=== PATIENT | female | born 1950 | race Caucasian/White ===

== ENCOUNTER → 2016-08-01 | Outpatient (CLI) | payer BC ==
--- NOTE | 2016-08-01 08:46 | XR ---
EXAMINATION TYPE: XR Hip Complete RT DATE OF EXAM: 08/01/2016 8:34 AM CLINICAL HISTORY: Right hip pain TECHNIQUE: AP and frogleg views of the right hip are obtained. COMPARISON: None. FINDINGS: There is no acute fracture/dislocation evident in the right hip. The joint space in the r ight hip appears within normal limits. Right-sided pelvic phlebolith is present. IMPRESSION: No significant finding is seen to account for patient's symptoms of pain.
== END | disposition home or self-care (01) ==
LOC: RADXRMAIN 08:14
PROVIDERS: ATTEND Family Medicine
DX: M25.551 Pain in right hip (principal)
CPT/HCPCS: 73502

== ENCOUNTER → 2016-10-22 | Outpatient (CLI) | payer BC ==
--- NOTE | 2016-10-22 09:33 | WWHP ---
DATE OF SERVICE: 10/22/2016 CHIEF COMPLAINT: The patient is here for her routine gynecologic exam and mammogram. HPI: This is a 66-year-old G4, P4 with an LMP of 1993, who is status post GAIL/BSO for benign reasons. The patient is without gynecologic complaints. PAST MEDICAL HISTORY: COPD, seasonal allergies, chronic back problems including a herniated disc, elevated cholesterol, borderline hypertension, osteoporosis, status post 10 years of Fosamax use and depression. MEDICATIONS: 1. Citalopram 2 mg at bedtime. 2. Albuterol inhaler p.r.n. 3. Diazepam 2 mg p.r.n. 4. Soma p.r.n. for back pain. 5. Hydrocodone p.r.n. for back pain. 6. Calcium and vitamin D supplements daily. ALLERGIES: SULFA which caused hives and CLINDAMYCIN which caused nausea, vomiting, and diarrhea. 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 SOCIAL HISTORY: She quit smoking in 2013, but does use e-cigarette about 3 times per day. She has about 3 alcoholic drinks per year and denies drug use. 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 REVIEW OF SYSTEMS: She has lost about 38 pounds over the last year and she believes she has been more active and has been eating less. She denies respiratory, cardiac, or GI problems. She states she has been regular with her bowel movements. PHYSICAL EXAM: Blood pressure 133/68. Height 5 feet 2 inches. Weight 145 pounds. Temperature 98.1, pulse 53. This is a well-developed, well-nourished white female who is alert and oriented x3, in no acute distress. HEENT is within normal limits. NECK: Supple without mass or thyromegaly. CHEST AND LUNGS: There is mild increased expiratory phase consistent with her COPD, but there are no rales, rhonchi or wheezes. HEART: Regular rate and rhythm. Breasts are without mass or discharge and are consistent with previous breast reduction surgery. Axillary exam is negative for adenopathy. BACK: Negative for CVA tenderness. ABDOMEN: Soft, nontender, without palpable masses. Abdomen is nondistended. PELVIC EXAM: External genitalia reveals mild to moderate atrophy without lesions. Vagina reveals mild to moderate atrophy without lesions. The vagina is slightly short and measures approximately 10 cm which is stable from her exam last year. Bimanual exam reveals a mass near the apex of the vagina measuring approximately 5 x 4 cm and has the consistency of stool. There are no other pelvic masses and there is no tenderness noted. Rectovaginal exam confirms mass, but stool is not felt in the rectum so I cannot be sure that the palpable mass is stool by exam. There are no rectal masses and rectal exam is nontender and this is negative for occult blood. EXTREMITIES: Nontender. IMPRESSION: 1. A 66-year-old menopausal female, status post total abdominal hysterectomy/bilateral salpingo-oophorectomy for benign reasons. 2. Pelvic mass near the apex of the vagina. Differential diagnosis will include colonic stool as well as pelvis neoplasm. PLAN: 1. Pap smears have been discontinued. 2. Self breast examination was discussed. 3. Mammogram will be done today. 4. I have given her an order form for a pelvic ultrasound and stressed the importance of having this done. I have also recommended that she try to evacuate her rectum and colon as well as she can prior to the ultrasound. I have suggested that she can use something like Senokot to remove stool if possible. 5. She will also return in one year.
--- NOTE | 2016-10-23 10:27 | MM ---
Reason for exam: screening (asymptomatic). Last mammogram was performed 1 year and 3 months ago. History: Patient is postmenopausal. Family history of breast cancer in cousin at age 35. Reductions of both breasts, 1993. Physical Findings: A clinical breast exam by your physician is recommended on an annual basis and results should be correlated with mammographic findings. MG Screening Mammo w CAD Bilateral CC and MLO view(s) were taken. Prior study comparison: July 18, 2015, bilateral MG screening mammo w CAD. December 08, 2012, bilateral digital screening mammo w/CAD. There are scattered fibroglandular densities. There is no discrete abnormality. No significant changes when compared with prior studies. ASSESSMENT: Negative, BI-RAD 1 RECOMMENDATION: Routine screening mammogram of both breasts in 1 year.
== END | disposition home or self-care (01) ==
LOC: WWCWWP 07:42
PROVIDERS: ATTEND Obstetrics & Gynecology
DX: Z12.31 Encounter for screening mammogram for malignant neoplasm of breast (principal)

== ENCOUNTER → 2016-10-29 | Outpatient (CLI) | payer BC ==
--- NOTE | 2016-10-29 14:43 | CTL ---
EXAMINATION TYPE: CT Low Dose Lung DATE OF EXAM ORDERED: 10/29/2016 2:33 PM COMPARISON: None HISTORY: . Low Dose CT Lung Screening CT DLP: [address] CTDI: 2.56 mGy IV CONTRAST USED: None. SCREENING VISIT: First visit COMPARISON: None. TECHNIQUE: Low dose computed tomography scan was performed through the chest at 1 millimeter thick se ctions and reconstructed images in the coronal plane at [address] DIAGNOSTIC QUALITY: Satisfactory FINDINGS: LUNG NODULES: Not presentLeft lung: no nodules identified.Right lung: no nodules identified. LUNGS: COPD: Severity: Mild Fibrosis: Severity:None Lymph nodes: None Other findings: None RIGHT PLEURAL SPACE: Effusion: None Calcification: None Thickening: None Pneumothorax: None LEFT PLEURAL SPACE: Effusion: None Calcification: None Thickening: None Pneumothorax: None HEART: Heart Size: Mildly enlarged Coronary calcification: Moderate Pericardial effusion: None OTHER FINDINGS: Upper abdomen: No significant abnormality Bony thorax: Degenerative changes Supraclavicular region: No significant abnormalityOther: No significant abnormalityI IMPRESSION: No pulmonary nodules identified. FOLLOW UP CT CHEST RECOMMENDATION: Follow-up screening in one year CT LUNG RAD: Negative LUNG RAD CATEGORY 1
== END | disposition home or self-care (01) ==
LOC: RADCTMAIN 14:07
PROVIDERS: ATTEND Family Medicine
DX: Z12.2 Encounter for screening for malignant neoplasm of respiratory organs (principal); Z87.891 Personal history of nicotine dependence

== ENCOUNTER → 2016-11-05 | Outpatient (CLI) | payer BC ==
--- NOTE | 2016-11-05 10:57 | US ---
EXAMINATION TYPE: US pelvic limited DATE OF EXAM: 11/05/2016 7:19 AM COMPARISON: NONE CLINICAL HISTORY: R19.00 Pelvic Mass. History of complete hysterectomy in 1993, Dr felt possible righ t adnexal mass on pelvic exam. Scanned bilateral adnexal regions, no mass seen. Peristalsing bowel noted. Uterus is not identified. Bowel gas is present. IMPRESSION: 1. No discrete mass. Clinical management is recommended. CT could be performed if additional evaluati on is required.
== END | disposition home or self-care (01) ==
LOC: RADUSWWP 06:46
PROVIDERS: ATTEND Obstetrics & Gynecology
DX: R19.00 Intra-abdominal and pelvic swelling, mass and lump, unspecified site (principal)
CPT/HCPCS: 76857

== ENCOUNTER 2017-03-06 07:18 | Day surgery (SDC) | payer BC ==
[2017-03-04 14:13] VITALS: BMI 25.2
[2017-03-06 07:44] VITALS: RESP 16; TEMP 98.2
[2017-03-06] MEDS ORDERED: SODIUM CHLORIDE 0.9% 500 ML IV ONE (07:45)
[2017-03-06] MEDS ORDERED: fentaNYL (PF) 50 MCG/ML 2 ML AMP ONE (08:29)
[2017-03-06] MEDS ORDERED: MIDAZOLAM 2 MG/2 ML VIAL ONE (08:30)
[2017-03-06] MEDS ORDERED: fentaNYL (PF) 50 MCG/ML 2 ML AMP IVP ONE (08:39)
[2017-03-06] MEDS ORDERED: MIDAZOLAM 2 MG/2 ML VIAL IVP ONE (08:39)
[2017-03-06] MEDS: BENZOCAINE SPRAY 1 SPRAY CAN MUCOUS MEM ONE ×2 (08:39→08:42)
[2017-03-06] MEDS ORDERED: SODIUM CHLORIDE 0.9% 1,000 ML IV SCH (09:00)
--- NOTE | 2017-03-06 09:07 | P.TEE ---
Indications for Procedure(s): Assessment of aortic valve stenosis Date of Procedure: 03/06/17 Description of Procedure(s): INDICATION: This is a 66-year-old female who was recently evaluated because of abnormal heart murmur and EKG. She was found to have evidence of aortic stenosis with significant gradient. The valve leaflets could not be well- visualized and there is suspicion she may have some aortic membrane. Patient is advised to have JOSY examination. Patient is explained the risks and benefits of the procedure CONSENT: . Informed consent was obtained from patient PROCEDURE: , Patient was brought to the lab in a fasting state. She was prepped and draped in the usual fashion. She was given IV Versed 2 mg and fentanyl 50 g for conscious sedation. A lubricated Omni probe was then introduced into the oropharynx and was advanced into the esophagus and stomach. Multiple views were obtained from the stomach and esophagus. Color and pulse wave Doppler were performed along with saline bubble injection. FINDINGS: The aortic valve appears to be bicuspid with a raphae. There is thickening and calcification of the valve leaflets. By planimetry valve area of about 1-1.2 was obtained. A peak gradient of 80 with a mean of about 50 was obtained across the aortic valve. There was no regurgitation across the valve. The mitral valve structure appeared to be normal with mild central mitral regurgitation. The tricuspid valve appeared to be normal. The interatrial septum appeared to be intact without any significant shunt. Saline bubble injection did not reveal any crossing of the bubbles. Left atrial appendage is free of any clot. Left ankle function appear to be normal. The aorta showed minimal plaque. Aortic root diameter is measured about 3.3. IMPRESSION: #1. Bicuspid aortic valve with severe aortic stenosis by Doppler criteria. #2. Mild mitral regurgitation #3. No clot in the left atrial appendage #4. No evidence of PFO #5. Left ventricular function is preserved PLAN: . Continue current medical therapy. Proceed with cardiac catheterization. Patient will need aortic valve replacement.
[2017-03-06 09:39] VITALS: BP 131/63; PULSE 65
== END 2017-03-06 10:02 | disposition home or self-care (01) ==
LOC: CATHCVL 07:18
PROVIDERS: ATTEND Internal Medicine Cardiovascular Disease
DX: I08.0 Rheumatic disorders of both mitral and aortic valves (principal); Q23.1 Congenital insufficiency of aortic valve; R09.89 Other specified symptoms and signs involving the circulatory and respiratory systems; J44.9 Chronic obstructive pulmonary disease, unspecified; R94.31 Abnormal electrocardiogram [ECG] [EKG]; R01.1 Cardiac murmur, unspecified; Z79.899 Other long term (current) drug therapy; Z88.2 Allergy status to sulfonamides; F17.200 Nicotine dependence, unspecified, uncomplicated
CPT/HCPCS: 93312; 93320; 93325; 99152; J2250; J3010

== ENCOUNTER → 2017-03-28 | Outpatient (CLI) | payer BC ==
[2017-03-28 10:20] LABS: CH 29.2; CHCM 30.8; HCT 46.2 % (34.0-46.0); HDW 2.28; HGB 14.3 gm/dL (11.4-16.0); Hypochromasia Slight; MCH 29.5 pg (25.0-35.0); MCV 95.3 fL (80.0-100.0); Mean Platelet Volume 6.8; RBC 4.84 m/uL (3.80-5.40); RDW 13.8 % (11.5-15.5); WBC 10.7 k/uL (3.8-10.6)
[2017-03-28 10:39] LABS: Anion Gap 10 mmol/L; Blood Urea Nitrogen 16 mg/dL (7-17); Carbon Dioxide 26 mmol/L (22-30); Chloride 104 mmol/L (98-107); Non-African American GFR(MDRD) >60 (>60 ml/min/1.73 sqM); Potassium 4.5 mmol/L (3.5-5.1); Sodium 140 mmol/L (137-145)
== END | disposition home or self-care (01) ==
LOC: LABPAT 08:41
PROVIDERS: ATTEND Internal Medicine Cardiovascular Disease
DX: Z01.812 Encounter for preprocedural laboratory examination (principal); I35.0 Nonrheumatic aortic (valve) stenosis
CPT/HCPCS: 36415; 80051; 82565; 84520; 85027

== ENCOUNTER 2017-04-23 07:59 | Day surgery (SDC) | payer BC ==
[2017-04-22 10:23] VITALS: BMI 25.2
[~2017-04-23 07:59] MED LIST: ALPRAZolam 0.25 MG TAB PO PRN; ALPRAZolam 0.5 MG TAB PO PRN; ASPIRIN 325 MG TAB PO STA; NITROGLYCERIN SL TABS 0.4 MG TAB SUBLINGUAL PRN; SODIUM CHLORIDE 0.9% 1,000 ML in EMPTY BAG 1 BAG IV ONE
[2017-04-23 08:26] VITALS: PULSE 56; RESP 20; TEMP 97.9
[2017-04-23] MEDS ORDERED: LIDOCAINE 2% INJ 20 MG/ML (20 ML MDV) ONE (08:48)
[2017-04-23] MEDS ORDERED: fentaNYL (PF) 50 MCG/ML 2 ML AMP ONE (09:01)
[2017-04-23] MEDS ORDERED: MIDAZOLAM 2 MG/2 ML VIAL ONE (09:01)
[2017-04-23] MEDS ORDERED: fentaNYL (PF) 50 MCG/ML 2 ML AMP IV ONE (09:16)
[2017-04-23] MEDS ORDERED: MIDAZOLAM 2 MG/2 ML VIAL IV ONE (09:16)
[2017-04-23] MEDS ORDERED: LIDOCAINE 2% INJ 20 MG/ML SQ ONE (09:18)
[2017-04-23] MEDS ORDERED: SODIUM CHLORIDE 0.9% 1,000 ML IV ONE (09:20)
[2017-04-23 09:44] LABS: Site FA
[2017-04-23 09:45] LABS: Site PA
[2017-04-23 09:45] LABS: Site RA
[2017-04-23] MEDS ORDERED: IOHEXOL 350 MG/ML 125ML BOTTLE INJ ONE (10:14)
[2017-04-23] MEDS ORDERED: RX INFO: IV CONTRAST WAS GIVEN 1 EACH MISC MISCELLANE PRN (10:37)
[2017-04-23] MEDS ORDERED: DIAZEPAM 2 MG TAB PO PRN (10:39)
[2017-04-23] MEDS ORDERED: HYDROcodone/APAP 7.5-325MG 1 EACH TAB PO PRN (10:39)
[2017-04-23] MEDS ORDERED: SODIUM CHLORIDE 0.9% 1,000 ML IV SCH (10:45)
--- NOTE | 2017-04-23 11:00 | P.PCN ---
Date of Procedure: 04/23/17 Preoperative Diagnosis: Aortic stenosis Postoperative Diagnosis: The same Procedure(s) Performed: Right and left heart catheterization without left ventriculography. Aortic root injection Description of Procedure: HISTORY: This is a 66-year-old female who was found to have evidence of severe aortic stenosis by clinical examination and also echo and JOSY examination. Patient is advised to have right and left heart catheterization for further evaluation and and to rule out coronary artery disease. CONSENT:I have discussed the risks, benefits and alternative therapies for the above-mentioned procedure and for both sedation/analgesia as well as necessary blood product administration, if indicated, as they pertain to this patient. The patient has indicated understanding and acceptance of the risks and procedures discussed. PROCEDURE: Right heart catheterization: Patient was brought to the lab in a fasting state. Patient was given some IV sedation. The right groin is infiltrated with lidocaine and right femoral vein was entered using Seldinger technique. A 7-Bengali catheter left in place and right heart catheterization was performed using Hobucken-Ricki catheter. Patient tolerated the procedure well. Manual compression was used for hemostasis Left heart catheterization: This is performed from the right groin. Right femoral artery was entered using Seldinger technique. Selective coronary arteriography was performed using Flash catheters. The aortic valve could not be crossed. The aortic root injection was performed in the left anterior oblique projection. Femoral angiogram was performed and Angio-Seal was applied for hemostasis. No immediate complications were noted and patient was transferred to [facility] in a stable condition Conscious Sedation: Versed : 1 mg Fentanyl : 50 g Duration : 51 minutes HEMODYNAMICS: . Right heart catheterization: Right atrial pressure was 4, right ventricular pressure was 55/5, pulmonary artery pressure was 50/21 with mean of 31. Pulmonary wedge pressure was 21. Cardiac output by thermodilution method was 4.8 and by Trey method 3.75. Left heart catheterization: The aortic valve could not be crossed. The aortic pressure is about 130/75. The gradient by echo was 80 and mean gradient was 30 and a calculated valve area is 1 cm. SELECTIVE CORONARY ARTERIOGRAPHY: LEFT MAIN: Normal length and patent THE LEFT ANTERIOR DESCENDING CORONARY ARTERY: . This is a good caliber vessel. Patient doesn't have any major diagonal branches. The vessel is free of occlusive disease and reaches the apex THE LEFT CIRCUMFLEX AND IS CORONARY ARTERY: It is a codominant vessel giving rise good-sized OM branch. The circumflex was coronary artery is free of occlusive disease. THE RIGHT CORONARY ARTERY: His is a moderate caliber vessel and codominant. Free of any occlusive disease LEFT VENTRICULOGRAPHY: Not performed AORTIC ROOT INJECTION: This is performed in 30 left anterior oblique projection. This revealed calcified aortic valve without any significant regurgitation. FINAL IMPRESSION: Severe aortic stenosis by echo. Normal coronary arteries. Moderate pulmonary hypertension PLAN: , Aortic valve replacement PROGNOSIS: Guarded
[2017-04-23 16:12] VITALS: BP 150/82
[2017-04-23] MEDS ORDERED: ALBUTEROL NEBULIZED 2.5 MG/3 ML INHALATION SCH (20:00)
[2017-04-24] MEDS ORDERED: CITALOPRAM HYDROBROMIDE 20 MG TAB PO SCH (09:00)
[2017-04-24] MEDS ORDERED: MULTIVITAMINS, THERA 1 EACH TAB PO SCH (12:00)
== END 2017-04-23 15:35 | disposition home or self-care (01) ==
LOC: CATHCVL 07:59
PROVIDERS: ATTEND Internal Medicine Cardiovascular Disease
DX: I35.0 Nonrheumatic aortic (valve) stenosis (principal); I27.20 Pulmonary hypertension, unspecified; J44.9 Chronic obstructive pulmonary disease, unspecified; Z79.899 Other long term (current) drug therapy; Z88.2 Allergy status to sulfonamides; Z87.891 Personal history of nicotine dependence
CPT/HCPCS: 93456; 93567; 85018; 82810; C1769 ×4; C1760; C1894 ×2; J2001; J2250; J3010; Q9967

== ENCOUNTER → 2017-05-27 | Outpatient (CLI) | payer BC | END | disposition home or self-care (01) | LOC: CPPFTMAIN 13:46 | PROVIDERS: ATTEND Thoracic Surgery (Cardiothoracic Vascular Surgery) | DX: Z01.811 Encounter for preprocedural respiratory examination (principal); I35.2 Nonrheumatic aortic (valve) stenosis with insufficiency | CPT/HCPCS: 94060; 94726; 94729 ==

== ENCOUNTER → 2017-10-14 | Outpatient (CLI) | payer MEDICARE ==
[2017-10-14 08:25] LABS: Anisocytosis Slight; Basophils % (A) 0 %; Eosinophils # (A) 0.3 k/uL (0-0.7); Eosinophils % (A) 3 %; HCT 42.4 % (34.0-46.0); HGB 13.8 gm/dL (11.4-16.0); Lymphocytes # (A) 3.5 k/uL (1.0-4.8); Lymphocytes % (A) 39 %; MCH 27.4 pg (25.0-35.0); MCHC 32.6 g/dL (31.0-37.0); MCV 84.1 fL (80.0-100.0); Mean Platelet Volume 6.9; Microcytosis Slight; Monocytes # (A) 0.5 k/uL (0-1.0); Monocytes % (A) 6 %; Neutrophils # (A) 4.5 k/uL (1.3-7.7); Neutrophils % (A) 50 %; Platelet Count 293 k/uL (150-450); RBC 5.04 m/uL (3.80-5.40); RDW 17.8 % (11.5-15.5)
[2017-10-14 08:44] LABS: ALT 27 U/L (9-52); AST 28 U/L (14-36); Cholesterol 137 mg/dL (<200); HDL Cholesterol 55 mg/dL (40-60); LDL Cholesterol,Calculated 54 mg/dL (0-99); Triglycerides 139 mg/dL (<150)
== END | disposition home or self-care (01) ==
LOC: LABWHC1 07:44
PROVIDERS: ATTEND Internal Medicine Cardiovascular Disease
DX: E78.5 Hyperlipidemia, unspecified (principal); D64.9 Anemia, unspecified
CPT/HCPCS: 36415; 80061; 84450; 84460; 85025

== ENCOUNTER → 2018-01-06 | Outpatient (CLI) | payer MEDICARE ==
[2018-01-06 10:19] VITALS: BP 124/77; PULSE 52; TEMP 98.1; BMI 27.1
--- NOTE | 2018-01-06 10:53 | P.HPOB ---
History of Present Illness H&P Date: 01/06/18 Chief Complaint: The patient is here for her routine gynecologic exam and mammogram. This is a 67-year-old with an LMP of 1993 who is status post [facility] BSO for benign reasons. The patient is without gynecologic complaints. Review of Systems She has gained 3 pounds over the last year. She denies respiratory, cardiac and G.I. problems. She denies maltreatment or problems with falling. : she denies any significant problems with urinary leakage. She does urinate about 4 times per night. Past Medical History Past Medical History: Asthma, COPD, Osteoarthritis (OA) Additional Past Medical History / Comment(s): Seasonal allergies, chronic back problems and history of osteoporosis status post 10 years use of Fosamax. 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 History of Any Multi-Drug Resistant Organisms: None Reported Past Surgical History: Breast Surgery (Reduction), Heart Catheterization, Hysterectomy ([facility] BSO 1993), Orthopedic Surgery, Tubal Ligation Additional Past Surgical History / Comment(s): gin. rotator cuff repair, lt wrist tendon release, breast reduction, aortic valve replacement. Colonoscopy 2007 (2nd). Past Anesthesia/Blood Transfusion Reactions: No Reported Reaction Past Psychological History: Depression Smoking Status: Current some day smoker (5 per day) Past Alcohol Use History: Rare (6 per year) Additional Past Alcohol Use History / Comment(s): has smoked on and off past 40 years occasional cigarette or vapor cigarette Past Drug Use History: None Reported Additional History: She has been since 1986 and is retired. Her has chronic health issues. - Past Family History Mother Family Medical History: CVA/TIA Additional Family Medical History / Comment(s): Maternal cousin had breast cancer. Father Family Medical History: Cancer (Lymphoma) Son(s) Additional Family Medical History / Comment(s): Depression and committed suicide. Medications and Allergies Home Medications Medication Instructions Recorded Confirmed Type Albuterol Inhaler [Ventolin Hfa 2 puff INHALATION RT-TID 03/04/17 01/06/18 History Inhaler] Citalopram Hydrobromide 20 mg PO HS 03/04/17 01/06/18 History [Citalopram HBr] Diazepam [Valium] 2 mg PO TID PRN 03/04/17 01/06/18 History Multivitamin [Multivitamins Adult 1 tab PO DAILY 03/06/17 01/06/18 History Gummies] Aspirin 325 mg PO DAILY #30 tab 06/03/17 01/06/18 Rx Atorvastatin [Lipitor] 40 mg PO DAILY #30 tab 06/03/17 01/06/18 Rx Furosemide [Lasix] 20 mg PO DAILY #7 tab 06/03/17 01/06/18 Rx HYDROcodone/APAP 5-325MG [[place] 1 - 2 each PO Q6HR PRN #120 tab 06/03/17 Rx 5-325] Metoprolol Tartrate [Lopressor] 12.5 mg PO BID #60 tab 06/03/17 01/06/18 Rx Potassium Chloride ER [K-Dur 20] 20 meq PO DAILY #7 tab 06/03/17 01/06/18 Rx Allergies Allergy/AdvReac Type Severity Reaction Status Date / Time clindamycin Allergy Nausea, Verified 01/06/18 10:16 rash and hives Sulfa (Sulfonamide Allergy Rash/Hives Verified 01/06/18 10:16 Antibiotics) Exam Vital Signs Temp Pulse BP 01/06/18 10:16 98.1 F 52 L 124/77 Intake and Output 01/05/18 01/06/18 01/06/18 22:59 06:59 14:59 Other: Weight 67.132 kg Height 5'2", BMI 27.1. This is a well-developed well-nourished white female who is alert and oriented times 3 in no acute distress. HEENT: Within normal limits. NECK: Supple without mass or thyromegaly. CHEST AND LUNGS: Clear to auscultation. HEART: Regular rate and rhythm. BREASTS: Are without mass or discharge. Breasts are consistent with reduction surgery in the past. AXILLARY EXAM: Negative for adenopathy. BACK: Negative for CVA tenderness. ABDOMEN: Soft, nontender, without palpable masses. PELVIC EXAM: External genitalia appears normal with mild atrophy. Vagina appears normal is mild to moderate atrophy. There is no evidence of prolapse. Bimanual examination is negative for mass or tenderness. RECTAL EXAM: Rectovaginal exam is negative for mass or tenderness and is negative for occult blood. EXTREMITIES: Nontender. IMPRESSION: 1. 67-year-old menopausal female status post GAIL BSO for benign reasons with unremarkable gynecologic exam. 2. History of osteoporosis in the past, status post Fosamax use for approximately 10 years in the past. Most recent bone density test 2 years ago showed osteopenia. PLAN: 1. Pap smears have been discontinued. 2. Self breast awareness was discussed. 3. Screening mammogram will be done today. 4. Osteoporosis prevention was discussed. We will plan on repeating bone density testing next year. 5. I have recommended screening colonoscopy since it has been about 10 years. She states she will be doing this through Dr. Sosa. 6. She will return in one year. 7. She did get a flu shot last fall.
--- NOTE | 2018-01-06 15:30 | MM ---
Reason for exam: screening (asymptomatic). Last mammogram was performed 1 year and 2 months ago. History: Patient is postmenopausal. Family history of breast cancer in cousin at age 35. Reductions of both breasts, 1993. Physical Findings: A clinical breast exam by your physician is recommended on an annual basis and results should be correlated with mammographic findings. MG Screening Mammo w CAD Bilateral CC and MLO view(s) were taken. Prior study comparison: October 22, 2016, bilateral MG screening mammo w CAD. July 18, 2015, bilateral MG screening mammo w CAD. There are scattered fibroglandular densities. Finding: There are typically benign regional calcifications in the anterior position of the left breast. There is no discrete abnormality. ASSESSMENT: Benign, BI-RAD 2 RECOMMENDATION: Routine screening mammogram of both breasts in 1 year.
== END | disposition home or self-care (01) ==
LOC: WWCWWP 09:33
PROVIDERS: ATTEND Obstetrics & Gynecology
DX: Z12.31 Encounter for screening mammogram for malignant neoplasm of breast (principal)
CPT/HCPCS: 77067

== ENCOUNTER 2018-04-16 14:19 | Emergency (ER) | payer MEDICARE ==
[2018-04-16 14:33] VITALS: TEMP 98.2
[2018-04-16] MEDS ORDERED: ASPIRIN 81 MG PO STA (14:49)
[2018-04-16] MEDS ORDERED: IPRATROPIUM-ALBUTEROL 3 ML NEB INHALATION STA (14:49)
[2018-04-16] MEDS ORDERED: SODIUM CHLORIDE 0.9% 1,000 ML IV STA ×2 (14:49)
--- NOTE | 2018-04-16 15:12 | ED ---
Chest Pain HPI - General Chief Complaint: Chest Pain Stated Complaint: chest pain-sent by Time Seen by Provider: 04/16/18 14:34 Source: patient, RN notes reviewed, old records reviewed Mode of arrival: wheelchair Limitations: no limitations - History of Present Illness Initial Comments: This patient's a 67-year-old male presents emergency department due to plan cough congestion shortness of breath as well as chest discomfort for the past few weeks. Patient was seen by her PCP today and was sent over due to low heart rate and EKG abnormalities. Patient reports that she's had history of aortic valve replacement in May of last year. No previous cardiac cath. Patient at this point describes some pressure to her chest. She reports she's been under tremendous stress due to her being ill as well as her son passing away this year due to suicide. Patient states that she's had a productive cough as well, yellow-green sputum. She is a smoker. - Related Data Home Medications Medication Instructions Recorded Confirmed Albuterol Inhaler [Ventolin Hfa 2 puff INHALATION RT-TID 03/04/17 04/16/18 Inhaler] Citalopram Hydrobromide 20 mg PO HS 03/04/17 04/16/18 [Citalopram HBr] Diazepam [Valium] 2 mg PO TID PRN 03/04/17 04/16/18 Multivitamin [Multivitamins Adult 1 tab PO DAILY 03/06/17 04/16/18 Gummies] Aspirin EC [Ecotrin] 325 mg PO DAILY 04/16/18 04/16/18 Biotin 5 mg PO DAILY 04/16/18 04/16/18 HYDROcodone/APAP 7.5-325MG [[place] 1 tab PO Q6H 04/16/18 04/16/18 7.5-325] Vitamin B Complex 1 cap PO DAILY 04/16/18 04/16/18 Vitamin E (Dl,Tocopheryl Acet) 400 unit PO DAILY 04/16/18 04/16/18 [Vitamin E] Previous Rx's Medication Instructions Recorded Aspirin 325 mg PO DAILY #30 tab 06/03/17 Atorvastatin [Lipitor] 40 mg PO DAILY #30 tab 06/03/17 Furosemide [Lasix] 20 mg PO DAILY #7 tab 06/03/17 Metoprolol Tartrate [Lopressor] 12.5 mg PO BID #60 tab 06/03/17 Potassium Chloride ER [K-Dur 20] 20 meq PO DAILY #7 tab 06/03/17 Azithromycin [Zithromax Z-pack] 250 mg PO DIRECTED #6 tab 04/16/18 methylPREDNISolone Dose Pack 4 mg PO DIRECTED #21 package 04/16/18 [Medrol Dose Pack] Allergies Allergy/AdvReac Type Severity Reaction Status Date / Time clindamycin Allergy Nausea, Verified 04/16/18 14:40 rash and hives Sulfa (Sulfonamide Allergy Rash/Hives Verified 04/16/18 14:40 Antibiotics) Review of Systems ROS Statement: Those systems with pertinent positive or pertinent negative responses have been documented in the HPI. ROS Other: All systems not noted in ROS Statement are negative. Past Medical History Past Medical History: Asthma, COPD, Osteoarthritis (OA) Additional Past Medical History / Comment(s): Seasonal allergies, chronic back problems and history of osteoporosis status post 10 years use of Fosamax. 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 History of Any Multi-Drug Resistant Organisms: None Reported Past Surgical History: Breast Surgery, Heart Catheterization, Hysterectomy, Orthopedic Surgery, Tubal Ligation Additional Past Surgical History / Comment(s): gin. rotator cuff repair, lt wrist tendon release, breast reduction, aortic valve replacement. Colonoscopy 2007 (2nd). Past Anesthesia/Blood Transfusion Reactions: No Reported Reaction Past Psychological History: Depression Smoking Status: Current some day smoker Past Alcohol Use History: Rare Past Drug Use History: None Reported - Past Family History Mother Family Medical History: CVA/TIA Additional Family Medical History / Comment(s): Maternal cousin had breast cancer. Father Family Medical History: Cancer (Lymphoma) Son(s) Additional Family Medical History / Comment(s): Depression and committed suicide. General Exam - General Exam Comments Initial Comments: Patient is a 67-year-old female. Alert and oriented. Patient appears in no acute distress. Limitations: no limitations General appearance: alert, in no apparent distress Head exam: Present: atraumatic, normocephalic, normal inspection Eye exam: Present: normal appearance, PERRL, EOMI. Absent: scleral icterus, conjunctival injection, periorbital swelling ENT exam: Present: normal exam, mucous membranes moist Neck exam: Present: normal inspection. Absent: tenderness, meningismus, lymphadenopathy Respiratory exam: Present: wheezes ([place] wheezing). Absent: normal lung sounds bilaterally, respiratory distress, rales, rhonchi, stridor Cardiovascular Exam: Present: regular rate, normal rhythm, normal heart sounds. Absent: systolic murmur, diastolic murmur, rubs, gallop, clicks GI/Abdominal exam: Present: soft, normal bowel sounds. Absent: distended, tenderness, guarding, rebound, rigid Extremities exam: Present: normal inspection, full ROM, normal capillary refill. Absent: tenderness, pedal edema, joint swelling, calf tenderness Back exam: Present: normal inspection Neurological exam: Present: alert, oriented X3, CN II-XII intact Psychiatric exam: Present: normal affect, normal mood Skin exam: Present: warm, dry, intact, normal color. Absent: rash Course Vital Signs 04/16/18 04/16/18 04/16/18 14:28 15:18 15:25 Temperature 98.2 F Pulse Rate 50 L 82 85 Pulse Rate [ Supine Pulse Oximetery] Respiratory 20 18 18 Rate Blood Pressure 140/73 O2 Sat by Pulse 98 Oximetry 04/16/18 04/16/18 04/16/18 15:54 16:41 17:06 Temperature Pulse Rate 80 65 Pulse Rate [ 96 Supine Pulse Oximetery] Respiratory 18 18 Rate Blood Pressure 141/81 196/91 O2 Sat by Pulse 96 98 Oximetry Chest Pain MDM - MDM 67-year-old female presents emergency department today with low heart rate at her PCPs office. Patient was sent in for further evaluation. She also complained of some chest pressure episodes. Patient states that she is having them intermittently for the past 3 weeks. Patient is adamant upon arrival that she will not stay in hospital. We did hydrate the Patient. We did report that she did have some EKG changes. EKG shows marked sinus bradycardia, nonspecific ST-T wave. Abnormal EKG noted. Ventricular rate of 49 bpm. MD interval is 152 ms. QRS duration is 100 ms. QT QTc is 508/458 ms. I did discuss the importance of admission further evaluation with cardiology. Patient states with normal lab work show arrested she wants to go home. Her chest x-ray was normal and shows no pneumonia. She does have a mild cough consistent with bronchitis. She is a smoker. I discussed at this time the Patient with a double history including smoking and her age as well as cardiac history with aortic valve replacement I did discuss that she should be seen by bit by cardiology. She will be signing out AGAINST MEDICAL ADVICE. She does state she has an appointment on Friday with her promotional marketing analyst but will call to see him tomorrow as well. Disposition Clinical Impression: Chest pain, Bronchitis Disposition: Left Against Medical Advice Instructions: Chest Pain (DC), Acute Bronchitis (ED) Prescriptions: Azithromycin [Zithromax Z-pack] 250 mg PO DIRECTED #6 tab methylPREDNISolone Dose Pack [Medrol Dose Pack] 4 mg PO DIRECTED #21 package Is patient prescribed a controlled substance at d/c from ED?: No Referrals: Dawit Sosa MD [Primary Care Provider] - 1-2 days
[2018-04-16 15:18] VITALS: RESP 18
[2018-04-16 15:33] LABS: Basophils % (A) 0 %; Eosinophils # (A) 0.2 k/uL (0-0.7); Eosinophils % (A) 2 %; HCT 48.6 % (34.0-46.0); HGB 15.7 gm/dL (11.4-16.0); Lymphocytes # (A) 3.8 k/uL (1.0-4.8); Lymphocytes % (A) 34 %; MCH 29.1 pg (25.0-35.0); MCHC 32.3 g/dL (31.0-37.0); Mean Platelet Volume 6.5; Monocytes # (A) 0.6 k/uL (0-1.0); Monocytes % (A) 5 %; Neutrophils # (A) 6.4 k/uL (1.3-7.7); Neutrophils % (A) 57 %; Platelet Count 334 k/uL (150-450); RDW 13.9 % (11.5-15.5); WBC 11.2 k/uL (3.8-10.6)
[2018-04-16 15:46] LABS: Partial Thromboplastin Time 24.6 sec (22.0-30.0); Prothrombin Time 9.9 sec (9.0-12.0)
[2018-04-16 16:03] LABS: Creatine Kinase 67 U/L (30-135)
[2018-04-16 16:07] LABS: Albumin 4.6 g/dL (3.5-5.0); Calcium 9.9 mg/dL (8.4-10.2); Magnesium 2.1 mg/dL (1.6-2.3); Total Bilirubin 0.5 mg/dL (0.2-1.3); Total Protein 8.1 g/dL (6.3-8.2)
[2018-04-16 16:15] LABS: Creatine Kinase MB 1.1 ng/mL (0.0-2.4); Troponin I <0.012 ng/mL (0.000-0.034)
--- NOTE | 2018-04-16 16:17 | XR ---
EXAMINATION TYPE: XR chest 2V DATE OF EXAM: 04/16/2018 COMPARISON: 06/02/2017 HISTORY: Shortness of breath TECHNIQUE: Frontal and lateral views of the chest are obtained. FINDINGS: Scattered senescent parenchymal changes noted. Hyperinflation compatible with COPD. No evidence for infiltrate. No evidence for atelectasis. Heart size is stable. Mediastinal structures are stable and grossly unremarkable. No evidence for hilar prominence. Degenerative changes dorsal spine. IMPRESSION: 1. No evidence for acute pulmonary disease.
[2018-04-16 17:25] VITALS: BP 178/85; PULSE 53
== END 2018-04-16 17:24 | disposition left against medical advice (07) ==
LOC: EC 14:19
DX: J40 Bronchitis, not specified as acute or chronic (principal); J44.9 Chronic obstructive pulmonary disease, unspecified; M19.90 Unspecified osteoarthritis, unspecified site; M81.0 Age-related osteoporosis without current pathological fracture; F32.9 Major depressive disorder, single episode, unspecified; F17.200 Nicotine dependence, unspecified, uncomplicated; Z95.818 Presence of other cardiac implants and grafts; Z95.2 Presence of prosthetic heart valve; Z79.82 Long term (current) use of aspirin; Z79.891 Long term (current) use of opiate analgesic; Z79.899 Other long term (current) drug therapy; Z88.1 Allergy status to other antibiotic agents; Z88.2 Allergy status to sulfonamides
CPT/HCPCS: 36415; 71046; 80053; 82550; 82553; 83735; 84484; 85025; 85610; 85730; 93005; 94640; 96360; 99285

== ENCOUNTER → 2019-04-07 | Outpatient (CLI) | payer MEDICARE ==
[2019-04-07 09:10] VITALS: BP 166/73; PULSE 46; RESP 18; TEMP 98.2; BMI 28.7
--- NOTE | 2019-04-07 09:56 | P.HPOB ---
History of Present Illness H&P Date: 04/07/19 Chief Complaint: The patient is here for her routine gynecologic exam and ma mmogram. This is a 68-year-old with an LMP of 1993. The patient is status post GAIL/BSO for benign reasons. The patient is without gynecologic complaints. Review of Systems She has gained about 9 pounds over the last year. She denies respiratory, cardiac and G.I. problems. She denies maltreatment or problems with falling. : she denies any significant problems with urinary leakage. She does feel that she has a small bladder and has to get up several times at night. Past Medical History Past Medical History: Asthma, COPD, Osteoarthritis (OA) Additional Past Medical History / Comment(s): Seasonal allergies, chronic back problems and history of osteoporosis status post 10 years use of Fosamax. 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 History of Any Multi-Drug Resistant Organisms: None Reported Past Surgical History: Breast Surgery, Heart Catheterization, Hysterectomy, Orthopedic Surgery, Tubal Ligation Additional Past Surgical History / Comment(s): GAIL/BSO 1993. BL rotator cuff repair, L wrist tendon release, breast reduction, aortic valve replacement. Colonoscopy 2007 (2nd). Past Anesthesia/Blood Transfusion Reactions: No Reported Reaction Past Psychological History: Depression Smoking Status: Current some day smoker (5 cigarettes per day) Past Alcohol Use History: Rare (4 per year) Additional Past Alcohol Use History / Comment(s): has smoked on and off past 40 years cigarette or vapor cigarette. She no longer is using E cigarettes/vaping. Past Drug Use History: None Reported Additional History: She has been since 1986 but is not sexually active due to her 's chronic health issues. She is retired. - Past Family History Mother Family Medical History: CVA/TIA Additional Family Medical History / Comment(s): Maternal cousin had breast cancer. Father Family Medical History: Cancer Additional Family Medical History / Comment(s): Lymphoma. Son(s) Additional Family Medical History / Comment(s): Depression and committed suicide. Medications and Allergies Home Medications Medication Instructions Recorded Confirmed Type Albuterol Inhaler [Ventolin Hfa 2 puff INHALATION RT-TID 03/04/17 04/07/19 History Inhaler] Citalopram Hydrobromide 20 mg PO HS 03/04/17 04/07/19 History [Citalopram HBr] Diazepam [Valium] 2 mg PO TID PRN 03/04/17 04/07/19 History Multivitamin [Multivitamins Adult 1 tab PO DAILY 03/06/17 04/07/19 History Gummies] Aspirin 325 mg PO DAILY #30 tab 06/03/17 04/07/19 Rx Atorvastatin [Lipitor] 40 mg PO DAILY #30 tab 06/03/17 04/07/19 Rx Furosemide [Lasix] 20 mg PO DAILY #7 tab 06/03/17 04/07/19 Rx Potassium Chloride ER [K-Dur 20] 20 meq PO DAILY #7 tab 06/03/17 04/07/19 Rx Biotin 5 mg PO DAILY 04/16/18 04/07/19 History HYDROcodone/APAP 7.5-325MG [[place] 1 tab PO Q6H 04/16/18 04/07/19 History 7.5-325] Vitamin B Complex 1 cap PO DAILY 04/16/18 04/07/19 History Vitamin E (Dl,Tocopheryl Acet) 400 unit PO DAILY 04/16/18 04/07/19 History [Vitamin E] Allergies Allergy/AdvReac Type Severity Reaction Status Date / Time clindamycin Allergy Nausea, Verified 04/07/19 09:11 rash and hives Sulfa (Sulfonamide Allergy Rash/Hives Verified 04/07/19 09:11 Antibiotics) plum AdvReac Rash/Hives Unverified 04/07/19 09:11 Exam Vital Signs Temp Pulse Resp BP Pulse Ox 04/07/19 09:04 98.2 F 46 L 18 166/73 94 L Intake and Output 04/06/19 04/07/19 04/07/19 22:59 06:59 14:59 Other: Weight 71.214 kg Height 5 feet 2 inches, weight 157 pounds, BMI 28.7. This is a well-developed well-nourished white female who is alert and oriented times 3 in no acute distress. HEENT: Within normal limits. NECK: Supple without mass or thyromegaly. CHEST AND LUNGS: Clear to auscultation. HEART: Regular rate and rhythm. BREASTS: Are without mass or discharge. Consistent with breast reduction surgery. AXILLARY EXAM: Negative for adenopathy. BACK: Negative for CVA tenderness. ABDOMEN: Soft, nontender, without palpable masses. PELVIC EXAM: External genitalia appears normal with mild atrophy. Vagina appears normal with mild to moderate atrophy. There is no evidence of prolapse. Bimanual examination reveals a stool-like mass posterior to the vagina. There is no tenderness. RECTAL EXAM: Rectovaginal exam is consistent with stool without palpable rectal masses and is negative for occult blood. EXTREMITIES: Nontender. IMPRESSION: 1. 68-year-old menopausal female status post GAIL/BSO with normal gynecologic exam. 2. History of osteoporosis status post 10 years use of Fosamax with most recent bone density test showing osteopenia on 07/24/2015. PLAN: 1. Pap smears have been discontinued. 2. Self breast awareness was discussed with the patient. 3. Screening mammogram will be done today. 4. Osteoporosis prevention was discussed. I have stressed the importance of adequate calcium, vitamin D and regular exercise. Recommended amounts of calcium and vitamin D were also discussed. Repeat bone density testing will be done today. 5. She did get her flu shot this fall. 6. The patient was advised to return in 1-2 years for her well woman examination.
--- NOTE | 2019-04-07 16:39 | BD ---
EXAMINATION TYPE: Axial Bone Density DATE OF EXAM: 04/07/2019 COMPARISON: NONE CLINICAL HISTORY: Height: 5 FT 2 IN Weight: 157 FRAX RISK QUESTIONS: History of Fracture in Adulthood: YES Secondary Osteoporosis: 3. Menopause before 45: YES Current Tobacco Use: YES RISK FACTORS HISTORY OF: History of Wrist Fracture: YES When: IN HER 20'S Family History of Osteoporosis: YES Active: YES Postmenopausal woman: TOTAL HYST AGE 44 Poor Health: GOOD MEDICATIONS: Additional Medications: LIPITOR, LASIX, POTTASSIU, CHLORIDE, NORCO, VENTOLIN, DIAZEPAM, CITALOPRAM Additional History: PT OVER THE SUMMER TOOK TWO DOSE PACKS OF STEROIDS FOR NECK ISSUE AND STEROID KARENA T EXAM MEASUREMENTS: Bone mineral densitometry was performed using the [facility]. Bone mineral density as measured about the Lumbar spine is: ----- L1-L4(G/cm2): 0.890 T Score Values are as follows: ----- L2: -2.9 ----- L3: -2.7 ----- L4: -2.3 ----- L1-L4: -2.4 Bone mineral density has: DECREASED -7.8 % since study of: 2016 Bone mineral density about the R hip (g/cm2): 0.771 Bone mineral density about the L hip (g/cm2): 0.814 T Score values are as follows: -----R Neck: -1.9 -----L Neck: -1.6 -----R Total: -1.0 -----L Total: -1.0 Bone mineral density has: DECREASED -7.9 % since study of: 2016 IMPRESSION: Osteopenia (T Score between -2.5 and -1). There is slightly increased risk of fracture and the patient may be considered for treatment. Re-Screen 2-5 years. Findings are worsening from comparison. NOTE: T-SCORE=SD OF THE YOUNG ADULT MEAN.
--- NOTE | 2019-04-08 09:58 | MM ---
Reason for exam: screening (asymptomatic). Last mammogram was performed 1 year and 3 months ago. History: Patient is postmenopausal. Family history of breast cancer in cousin at age 35. Reductions of both breasts, 1993. Physical Findings: A clinical breast exam by your physician is recommended on an annual basis and results should be correlated with mammographic findings. MG 3D Screening Mammo W/Cad Bilateral CC, MLO, and XCCL view(s) were taken. Prior study comparison: January 06, 2018, bilateral MG screening mammo w CAD. October 22, 2016, bilateral MG screening mammo w CAD. There are scattered fibroglandular densities. Benign appearing bilateral calcifications. No suspicious abnormality. No significant changes when compared with prior studies. ASSESSMENT: Benign, BI-RAD 2 RECOMMENDATION: Routine screening mammogram of both breasts in 1 year.
== END | disposition home or self-care (01) ==
LOC: WWCWWP 08:59
PROVIDERS: ATTEND Obstetrics & Gynecology
DX: Z12.31 Encounter for screening mammogram for malignant neoplasm of breast (principal); M85.89 Other specified disorders of bone density and structure, multiple sites; Z78.0 Asymptomatic menopausal state
CPT/HCPCS: 77063; 77067; 77080

== ENCOUNTER → 2020-10-04 | Outpatient (CLI) | payer MEDICARE ==
--- NOTE | 2020-10-09 10:51 | MM ---
Reason for exam: screening (asymptomatic). Last mammogram was performed 1 year and 6 months ago. History: Patient is postmenopausal. Family history of breast cancer in cousin at age 35. Reductions of both breasts, 1993. Physical Findings: A clinical breast exam by your physician is recommended on an annual basis and results should be correlated with mammographic findings. MG 3D Screening Mammo W/Cad Bilateral CC and MLO view(s) were taken. Prior study comparison: April 07, 2019, bilateral MG 3d screening mammo w/cad. January 06, 2018, bilateral MG screening mammo w CAD. The breast tissue is almost entirely fat. No significant changes when compared with prior studies. ASSESSMENT: Benign, BI-RAD 2 RECOMMENDATION: Routine screening mammogram of both breasts in 1 year.
== END | disposition home or self-care (01) ==
LOC: RADMAMWWP 14:21
PROVIDERS: ATTEND Family Medicine
DX: Z12.31 Encounter for screening mammogram for malignant neoplasm of breast (principal); Z80.3 Family history of malignant neoplasm of breast; Z78.0 Asymptomatic menopausal state
CPT/HCPCS: 77063; 77067

== ENCOUNTER → 2022-06-18 | Outpatient (CLI) | payer MEDICARE ==
[2022-06-18 11:21] VITALS: BP 154/69; PULSE 42; RESP 17; TEMP 98.3
--- NOTE | 2022-06-18 12:21 | P.HPOB ---
History of Present Illness H&P Date: 06/18/22 Chief Complaint: The patient is here for her routine gynecologic exam and ma mmogram. This is a 71-year-old with an LMP of 1993. The patient is status post GAIL/BSO for benign reasons. She is without gynecologic complaints. Review of Systems Weight has been stable. The she denies respiratory or cardiac problems. GI: Occasional hemorrhoid symptoms and has occasionally noticed a spot of blood after bowel movements. She had a negative Cologuard test within the past 2 years. Past Medical History Past Medical History: Asthma, COPD, Osteoarthritis (OA) Additional Past Medical History / Comment(s): Seasonal allergies, chronic back problems and history of osteoporosis status post 10 years use of Fosamax. Cardiac valve and rhythm conditions followed by her delineator. 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 History of Any Multi-Drug Resistant Organisms: None Reported Past Surgical History: Breast Surgery, Heart Catheterization, Hysterectomy, Orthopedic Surgery, Tubal Ligation Additional Past Surgical History / Comment(s): GAIL/BSO 1993. BL rotator cuff repair, L wrist tendon release, breast reduction, aortic valve replacement. Colonoscopy 2007 (2nd). Past Anesthesia/Blood Transfusion Reactions: No Reported Reaction Past Psychological History: Depression Smoking Status: Current every day smoker (5 cigarettes per day.) Past Alcohol Use History: Rare Additional Past Alcohol Use History / Comment(s): has smoked on and off past 40 years cigarette or vapor cigarette. She no longer is using E cigarettes/vaping. Past Drug Use History: None Reported Additional History: She has been since 1986 and is not sexually active. She is retired. - Past Family History Mother Family Medical History: CVA/TIA Additional Family Medical History / Comment(s): Maternal cousin had breast cancer. Father Family Medical History: Cancer Additional Family Medical History / Comment(s): Lymphoma. Son(s) Additional Family Medical History / Comment(s): Depression and committed suicide. Medications and Allergies Home Medications Medication Instructions Recorded Confirmed Type Albuterol Inhaler [Ventolin Hfa 2 puff INHALATION RT-TID 03/04/17 06/18/22 History Inhaler] Citalopram Hydrobromide 20 mg PO HS 03/04/17 06/18/22 History [Citalopram HBr] diazePAM [Valium] 2 mg PO TID PRN 03/04/17 06/18/22 History Multivitamin [Multivitamins Adult 1 tab PO DAILY 03/06/17 06/18/22 History Gummies] Aspirin 325 mg PO DAILY #30 tab 06/03/17 06/18/22 Rx Atorvastatin [Lipitor] 40 mg PO DAILY #30 tab 06/03/17 06/18/22 Rx Furosemide [Lasix] 20 mg PO DAILY #7 tab 06/03/17 06/18/22 Rx Potassium Chloride ER [K-Dur 20] 20 meq PO DAILY #7 tab 06/03/17 06/18/22 Rx Biotin 5 mg PO DAILY 04/16/18 06/18/22 History HYDROcodone/APAP 7.5-325MG [[place] 1 tab PO Q6H 04/16/18 06/18/22 History 7.5-325] Vitamin B Complex 1 cap PO DAILY 04/16/18 06/18/22 History Vitamin E (Dl,Tocopheryl Acet) 400 unit PO DAILY 04/16/18 06/18/22 History [Vitamin E] Fluticasone Propionate 110 Mcg 1 puff INHALATION BID 06/18/22 06/18/22 History [Flovent 110 Mcg Inhaler] Allergies Allergy/AdvReac Type Severity Reaction Status Date / Time clindamycin Allergy Nausea, Verified 06/18/22 11:16 rash and hives Sulfa (Sulfonamide Allergy Rash/Hives Verified 06/18/22 11:16 Antibiotics) plum AdvReac Rash/Hives Unverified 06/18/22 11:16 Exam Vital Signs Temp Pulse Resp BP Pulse Ox 06/18/22 11:18 98.3 F 42 L 17 154/69 97 Intake and Output 06/17/22 06/18/22 06/18/22 22:59 06:59 14:59 Other: Weight 70.76 kg Height 5 foot 1 inch, weight 156 pounds, BMI 29.5. This is a well-developed well-nourished white female who is alert and oriented times 3 in no acute distress. HEENT: Within normal limits. NECK: Supple without mass or thyromegaly. CHEST AND LUNGS: Clear to auscultation. HEART: Regular rate with irregular rhythm. BREASTS: Are without mass or discharge. Consistent with bilateral breast reduction surgery. AXILLARY EXAM: Negative for adenopathy. BACK: Negative for CVA tenderness. ABDOMEN: Soft, nontender, without palpable masses. PELVIC EXAM: External genitalia appears normal with moderate atrophy. Vagina a ppears normal with mild to moderate atrophy. There is no evidence of prolapse. Bimanual examination is negative for mass or tenderness. RECTAL EXAM: Rectovaginal exam is negative for mass or tenderness and is negative for occult blood. EXTREMITIES: Nontender. IMPRESSION: 1. 71-year-old menopausal female status post GAIL/BSO for benign reasons, with normal gynecologic exam. 2. History of osteoporosis status post 10 years use of Fosamax 3. The regular cardiac rhythm. The patient states she has known cardiac arrhythmia and valvular issues and sees a delineator regularly for these. PLAN: 1. Pap smears have been discontinued. 2. Self breast awareness was discussed with the patient. We have also discussed symptoms associated with inflammatory breast cancer. 3. Screening mammogram will be done today. 4. The patient states she will continue to follow up with her delineator for her cardiac issues. She denies any cardiac symptoms at this time. 5. Osteoporosis management was discussed. I have stressed the importance of adequate calcium, vitamin D and regular exercise. Recommended amounts of calcium and vitamin D were also discussed. Her last bone density test was done on 04/07/2019. I have recommended repeating the bone density test and the order slip was given to the patient for this. 6. If she has recurrent blood per rectum after bowel movements, have recommended that she talk with her PCP regarding having another colonoscopy done. She states she will do this. 7. She has completed her Covid vaccination series and has received 2 boosters. 8. She was advised to return in one year for her annual well woman exam.
--- NOTE | 2022-06-19 11:24 | MM ---
Reason for Exam: Screening (asymptomatic). Last mammogram was performed 1 year(s) and 8 month(s) ago. Patient History: Menarche at age 13. First Full-Term at age 31. Left ovary removed at age 44. Right ovary removed at age 44. Hysterectomy at age 44. Postmenopausal. Estrogen for 3 months. 1992, Bilateral Reduction. Maternal cousin had breast cancer, age 35. Risk Values: Mag 5 year model risk: 2.1%. NCI Lifetime model risk: 6.4%. Prior Study Comparison: 01/06/2018 Bilateral Screening Mammogram, [facility]. 04/07/2019 Bilateral Screening Mammogram, [facility]. 10/04/2020 Bilateral Screening Mammogram, [facility]. Tissue Density: There are scattered fibroglandular densities. Findings: Analyzed By CAD. Pattern appears symmetrical and stable. Small nodularities in the posterior left cranial caudal view is identified 2017 comparison 2017 comparison No suspicious groups of microcalcifications, spiculated or lobular masses, architectural distortion or other secondary signs of malignancy are mammographically apparent. Overall Assessment: Benign, BI-RAD 2 Management: Screening Mammogram of both breasts in 1 year. A negative mammogram report should not preclude additional follow up of suspicious palpable abnormalities. Patient should continue monthly self breast exam. A clinical breast exam by your physician is recommended on an annual basis and results should be correlated with mammographic findings. Electronically signed and approved by: Bentley Camacho D.O. Radiologis
== END ==
LOC: WWCWWP 10:54
PROVIDERS: ATTEND Obstetrics & Gynecology
DX: Z12.31 Encounter for screening mammogram for malignant neoplasm of breast (principal); Z01.411 Encounter for gynecological examination (general) (routine) with abnormal findings; J44.9 Chronic obstructive pulmonary disease, unspecified; F17.200 Nicotine dependence, unspecified, uncomplicated; M19.90 Unspecified osteoarthritis, unspecified site; Z79.51 Long term (current) use of inhaled steroids; Z79.82 Long term (current) use of aspirin; Z87.310 Personal history of (healed) osteoporosis fracture; Z88.2 Allergy status to sulfonamides; Z88.1 Allergy status to other antibiotic agents; Z91.018 Allergy to other foods; Z90.710 Acquired absence of both cervix and uterus
CPT/HCPCS: 77063; 77067

== ENCOUNTER → 2022-07-11 | Outpatient (CLI) | payer MEDICARE ==
--- NOTE | 2022-07-11 16:11 | BD ---
EXAMINATION TYPE: Axial Bone Density DATE OF EXAM: 07/11/2022 COMPARISON: 04-07-19 CLINICAL HISTORY: 71 years year old Female. ICD-10 CODE: M81.0,Z78.0 Height: 61IN Weight: 160LB FRAX RISK QUESTIONS: History of Fracture in Adulthood: YES Secondary Osteoporosis: 3. Menopause before 45: YES Current Tobacco Use: YES RISK FACTORS HISTORY OF: History of Wrist Fracture: YES LT WRIST When: ABOUT 50 YEARS AGO Surgery to Wrist (right/left): YES RIGHT WRIST When: ABOUT 20 YEARS AGO Active: YES Postmenopausal woman: YES Take estrogen and/or progesterone medications: YES, NONE CURRENT How lon MONTHS MEDICATIONS: Osteoporosis Medications: Which medication: FOSAMAX NONE CURRENTLY How Long: ABOUT 4 YEARS Additional Medications: PAIN MED, ANXIETY MED, STATIN, CALCIUM WITH VITAMIN D Additional History: EXAM MEASUREMENTS: Bone mineral densitometry was performed using the [employer] System. Bone mineral density as measured about the Lumbar spine is: ----- L1-L4(G/cm2): 0.899 T Score Values are as follows: ----- L1: -2.1 ----- L2: -3.1 ----- L3: -2.7 ----- L4: -1.6 ----- L1-L4: -2.3 Bone mineral density has: Increased 2.5% since study of: 04-07-19 Bone mineral density about the R hip (g/cm2): 0.814 Bone mineral density about the L hip (g/cm2): 0.803 T Score values are as follows: -----R Neck: -2.3 -----L Neck: -2.4 -----R Total: -1.5 -----L Total: -1.6 Bone mineral density has: Decreased -8.6% since study of: 04-07-19 FRAX%s: The graph provided illustrates a 22.6% chance for a major osteoporotic fx and a 8% chance for the hips probability for fx in 10 years time. IMPRESSION: Osteopenia (T Score between -2.5 and -1). There is slightly increased risk of fracture and the patient may be considered for treatment. Re-Screen 2-5 years. NOTE: T-SCORE=SD OF THE YOUNG ADULT MEAN.
== END | disposition home or self-care (01) ==
LOC: RADBDWWP 09:06
PROVIDERS: ATTEND Obstetrics & Gynecology
DX: M81.0 Age-related osteoporosis without current pathological fracture (principal); M85.89 Other specified disorders of bone density and structure, multiple sites; Z78.0 Asymptomatic menopausal state
CPT/HCPCS: 77080